=== PATIENT | male | born 1950 | race Caucasian/White ===

== ENCOUNTER 2017-01-11 22:45 | Emergency (ER) | payer OTHER, MEDICARE ==
--- NOTE | 2017-01-11 22:48 | PDOC ---
History of Present Illness - General Chief Complaint: Pain, Acute Stated Complaint: RT ANKLE WOUND PAIN - History of Present Illness Initial Comments: 01/11/17 23:31 This 66-year-old man with a history of CAD/hypertension/hyperlipidemia, presents with history of having right lower leg sebaceous cyst removed in his doctor's office yesterday. Procedure went well and patient had minimal pain ( patient was able to take long walk last evening without difficulty). Tonight, patient had increased pain in the area of the incision and noted swelling in the area. No fever/chills. No previous history of cellulitis/infected cysts or abscesses. No history of resistant organism colonization or infection. 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; subsequently, he has been very cautious with antibiotics that are ototoxic Ampicillin(rash) Quinolones(insomnia) Past History - Past Medical History Allergies/Adverse Reactions: Allergies Allergy/AdvReac Type Severity Reaction Status Date / Time ampicillin [Ampicillin] Allergy Severe Rash Verified 06/22/12 15:03 neomycin [Neomycin] Allergy Severe DAMAGED Verified 06/22/12 15:03 HEARING Quinolones Allergy Severe INSOMNIA Verified 06/22/12 15:03 diazepam [From Valium] AdvReac Intermediate AGITATION Verified 06/07/16 13:23 Home Medications: Ambulatory Orders Ascorbate Calcium [Vitamin C] 500 mg PO DAILY 06/22/12 Aspirin Coated [Ecotrin] 162 mg PO DAILY 06/22/12 Calcium Polycarbophil [Fibercon] 1,000 mg PO BID 06/22/12 Docusate Sodium [Colace] 250 mg PO BID 06/22/12 Enalapril Maleate [Vasotec] 20 mg PO BID 06/22/12 Fish Oil/Borage/Flax/Om3,6,9#1 [[place] 3-6-9 Complex Softgel] 800 mg PO BID 06/22 Hydrochlorothiazide [Hctz] 25 mg PO BID 06/22/12 Omeprazole [Prilosec (RX)] 40 mg PO BID 06/22/12 Vitamin B Complex [Bal B-50] 1 each PO DAILY 06/22/12 Acetaminophen [Tylenol -] 1,000 mg PO Q6H PRN 06/07/16 Cholecalciferol (Vitamin D3) [Vitamin D3] 500 iu PO DAILY 06/07/16 Glucosa Lopez 2Kcl/Chondroitin Lopze [Glucosamine & Chondroitin Cap] 2 cap PO DAILY Nifedipine [Nifedipine ER] 90 mg PO DAILY 06/07/16 Sennosides/Docusate Sodium [Sennosides-Docusate Sodium Tab] 2 tab PO BID PRN Ibuprofen [Motrin -] 200 mg PO BID 06/12/16 Naproxen Sodium [Aleve] 220 mg PO BID 06/12/16 Nebivolol HCl [Bystolic] 10 mg PO HS 06/12/16 Nebivolol HCl [Bystolic] 20 mg PO DAILY 06/12/16 Cephalexin Monohydrate [Keflex -] 500 mg PO Q6H #28 capsule 01/12/17 Sulfamethoxazole/Trimethoprim [Bactrim Ds Tablet] 2 each PO BID #28 tablet 01/12 Anemia: Yes (HAD SHORT TERM TREATMENT WITH IRON MANY YEARS AGO) Asthma: No Cancer: Yes (PROSTATE CANCER-HAD SURGERY 2010) Cardiac Disorders: Yes (CAD) CVA: Yes (THINKS HE HAD TIA ABOUT WHILE OFF HTN MEDS, NO REAL RESIDUAL EFFECTS) COPD: No CHF: No Dementia: No Diabetes: No GI Disorders: Yes ( GERD,CONSTIPATION) Disorders: Yes (PROSTATE CA) HTN: Yes () Hypercholesterolemia: Yes (ON NIACIN) Liver Disease: No Seizures: No Thyroid Disease: No - Surgical History Abdominal Surgery: No Appendectomy: No Cardiac Surgery: Yes (ANGIOGRAM-2009- SOME BLOCKAGE NO RX) Cholecystectomy: No Lung Surgery: No Neurologic Surgery: No Orthopedic Surgery: Yes (LEFT KNEE ARTHROSCOPY ) - Psycho/Social/Smoking Cessation Hx Anxiety: No Suicidal Ideation: No Smoking History: Never smoked Have you smoked in the past 12 months: No Hx Alcohol Use: Yes (2-3 DAILY) Drug/Substance Use Hx: No Substance Use Type: Alcohol Hx Substance Use Treatment: No Review of Systems - Review of Systems Able to Perform ROS?: Yes Comments:: 12 point review of systems is negative except for what is noted in the history of present illness *Physical Exam - Physical Exam Comments: GENERAL:adult male, alert and oriented 3 in no acute distress HEAD: Normal with no signs of trauma. EYES: PERRLA, EOMI, sclera anicteric, conjunctiva clear. ENT: Ears normal, nares patent, oropharynx clear without exudates. Dry mucous membranes. NECK: Normal range of motion, supple without lymphadenopathy, JVD, or masses. LUNGS: Breath sounds equal, clear to auscultation bilaterally. No wheezes, and no crackles. HEART:Regular rate and rhythm, normal S1 and S2 without murmur, rub or gallop. ABDOMEN:.normal bowel sounds No guarding,tenderness or rebound.No masses No distention. EXTREMITIES: right lower leg1 cm linear horizontal sutured incision,intact, 3 cm proximal to medial malleolus no drainage/fluctuance from incision Moderate edema/moderate tenderness in area 4cm proximal/distal to incision No clear lymphangitic streaking Distal extremity warm and dry with good excellent cap refill NEUROLOGICAL: Cranial nerves II through XII grossly intact. Normal speech. No focal neurological deficits. MUSCULOSKELETAL: Back non-tender to palpation, no CVA tenderness SKIN: Warm, Dry, normal turgor, no rashes or lesions noted. ED Treatment Course - LABORATORY CBC & Chemistry Diagram: 01/11/17 23:40 01/11/17 23:40 Medical Decision Making - Medical Decision Making 01/10/17 23:52 Because patient has concerns regarding ototoxicity and vancomycin has some risk for ototoxicity, coverage of MRSA with parenteral agent somewhat problematic. Case discussed with Dr. Moss of Infectious disease staff: Since patient's ALLERGIC reaction to ampicillin was rash with no anaphylaxis, cephalosporins should be well tolerated Cepharoline 600 mg IV will be administered now with good coverage of MRSA as well as strep 01/12/17 02:31 Patient reports significant relief in pain in his leg after 30 mg Toradol IV as well as the IV Cepharoline. Lab results shows elevation of white count at 13,000 but no other significant abnormalities. Lactic acid is less than 1 Patient will be discharged with prescription for Bactrim DS twice a day for the next week along with Keflex 500 mg 4 times a day. Patient will follow-up with Dr. Ocampo within the next 48 hours. He should elevate his left leg as much as possible, avoiding strenuous activity. He should return to the ER if he has worsening pain/swelling/redness or develops fever *DC/Admit/Observation/Transfer Diagnosis at time of Disposition: Cellulitis of right lower leg - Discharge Dispostion Disposition: HOME Condition at time of disposition: Stable - Prescriptions Prescriptions: Sulfamethoxazole/Trimethoprim [Bactrim Ds Tablet] 2 each PO BID #28 tablet Cephalexin Monohydrate [Keflex -] 500 mg PO Q6H #28 capsule - Referrals Referrals: Rylee Ocampo MD [Primary Care Provider] - 2 Days - Patient Instructions Printed Discharge Instructions: Cellulitis Additional Instructions: BactrimDS 2 tabs twice a day for one week Keflex 500mg every 6 hours for one week keep right leg elevated as much as possible for the next 4-[address] Ocampo within the next2-3 days return to ER if you have worsening redness/swelling/ pain or you have fever
[2017-01-11 22:53] VITALS: BP 165/95; PULSE 69; TEMP 97.9; BMI 37.1
[2017-01-11] MEDS ORDERED: VANCOMYCIN 1,000 MG VIAL (RESTRICTED TO ID ONLY) ONE (23:26)
[2017-01-11] MEDS ORDERED: VANCOMYCIN 1,000 MG in DEXTROSE 5%-WATER - 250 ML IVPB ONE (23:37)
[2017-01-11] MEDS ORDERED: KETOROLAC TROMETHAMINE 30 MG/1 ML VIAL IVPUSH ONE (23:48)
[2017-01-11] MEDS ORDERED: KETOROLAC TROMETHAMINE 30 MG/1 ML VIAL ONE (23:51)
[2017-01-11 23:53] LABS: BASOPHIL 2.8 % (0-2.0); EOSINOPHIL 1.1 % (0-4.5); MCHC 34.1 g/dl (32.0-35.9); MEAN PLT VOLUME 8.9 fl (7.5-11.1); NEUTROPHILS 72.1 % (42.8-82.8); PLATELET COUNT 223 K/MM3 (134-434); RDW 12.4 % (11.9-15.9)
[2017-01-12 00:03] LABS: ALK PHOS 54 U/L (32-92); ANION GAP 9 (8-16); CALCIUM 9.8 mg/dl (8.4-10.2); CO2 24 mmol/L (22-28); CREATININE 0.9 mg/dl (0.6-1.3); GLUCOSE,RANDOM 121 mg/dl (74-106); SGOT/AST 24 U/L (10-42); SGPT/ALT 19 U/L (10-40); TOT PROT 6.5 g/dl (6.4-8.3)
[2017-01-12] MEDS: CEFTAROLINE FOSAMIL ACETATE 600 MG in DEXTROSE 5%-WATER - 100 ML IVPB ONE (00:16)
[2017-01-12] MEDS ORDERED: SULFAMETHOXAZOLE/TRIMETHOPRIM 800MG/160MG D.S. TABLET ONE (02:31)
[2017-01-12] MEDS ORDERED: CEPHALEXIN MONOHYDRATE 500 MG CAPSULE (UD) ONE (02:32)
== END 2017-01-12 02:38 | disposition home or self-care (01) ==
LOC: FER 22:45
PROC: 3E03329 Introduction of Other Anti-infective into Peripheral Vein, Percutaneous Approach (ICD-10-PCS; principal; 2017-01-11)
PROC: 3E0333Z Introduction of Anti-inflammatory into Peripheral Vein, Percutaneous Approach (ICD-10-PCS; 2017-01-11)
DX: L03.115 Cellulitis of right lower limb (principal); I25.10 Atherosclerotic heart disease of native coronary artery without angina pectoris; I10 Essential (primary) hypertension; E78.5 Hyperlipidemia, unspecified
CPT/HCPCS: 36415; 80053; 83605; 85025; 87040; 87070; 87186; 87205; 99283-25

== ENCOUNTER 2018-11-25 23:54 | Emergency (ER) | payer OTHER, MEDICARE ==
--- NOTE | 2018-11-26 | PDOC ---
History of Present Illness - General Chief Complaint: Ingestion Stated Complaint: PT THINKS HE TOOK TOO MUCH SALT Time Seen by Provider: 11/25/18 23:59 History Source: Patient Exam Limitations: No Limitations - History of Present Illness Initial Comments: 11/26/18 00:10 68-year-old man with a history of CAD/hypertension/hyperlipidemia presenting with concerns he accidentally ingested too much salt today. About 1 hour to presentation, he was using the salt shaker and put too much salt on his sandwich. Unable to quantify, but too much. he is feeling anxious and endorsing mild headache. No cp, sob, AP, n/v/d, no weakness or leg swelling. No cough. No aspiration. He took his antihypertensives [employer] as scheduled. Denies other coingestants. ROS Constitutional: no fevers or chills. HEENT: no headache or dizziness. No congestion. No visual/hearing disturbances. CVS: no cp or syncope. Resp: no sob. No cough. Gastrointestinal: no abdominal pain, nausea or vomiting. Genitourinary: no urinary sx, hematuria. MUSCULOSKELETAL: No joint pain and swelling. No neck or back pain. SKIN: no redness or skin changes, no discharge, no rash. No wounds. Hematologic: no easy bruising/bleeding. NEUROLOGIC: No headache, dizziness, LOC or altered mental status. No weakness, numbness or tingling. Allergic/Immunologic: no allergies All other systems reviewed and negative, or as documented in HPI. PE General: Well appearing, awake and alert, anxious. HEENT: NCAT, PERRL, EOMI, clear conjunctiva, anicteric, moist mucus membranes, clear oropharynx, no oral lesions.. Neck: neck supple, FROM Resp: CTAB, normal and even respirations, no respiratory distress CVS: RRR, no murmurs, 2+ peripheral pulses throughout, no peripheral edema Abdomen: soft, NTND, obese Back: nontender, normal inspection and ROM MSK: no edema, MONK x4, ROM intact. No clubbing or cyanosis. normal bulk and tone. Neuro: alert, oriented appropriately. no focal neuro deficits, ambulatory w/o difficulty. Skin: warm and well perfused, cap refill <2 sec, normal color 11/26/18 00:10 11/26/18 00:12 Past History - Past Medical History Allergies/Adverse Reactions: Allergies Allergy/AdvReac Type Severity Reaction Status Date / Time ampicillin [Ampicillin] Allergy Severe Rash Verified 06/22/12 15:03 neomycin [Neomycin] Allergy Severe DAMAGED Verified 06/22/12 15:03 HEARING Quinolones Allergy Severe INSOMNIA Verified 06/22/12 15:03 diazepam [From Valium] AdvReac Intermediate AGITATION Verified 06/07/16 13:23 Home Medications: Ambulatory Orders Ascorbate Calcium [Vitamin C] 500 mg PO DAILY 06/22/12 Aspirin Coated [Ecotrin] 162 mg PO DAILY 06/22/12 Calcium Polycarbophil [Fibercon] 1,000 mg PO BID 06/22/12 Docusate Sodium [Colace] 250 mg PO BID 06/22/12 Enalapril Maleate [Vasotec] 20 mg PO BID 06/22/12 Fish Oil/Borage/Flax/Om3,6,9 1 [[place] 3-6-9 Complex Softgel] 800 mg PO BID 06/22 Hydrochlorothiazide [Hctz] 25 mg PO BID 06/22/12 Omeprazole [Prilosec (RX)] 40 mg PO BID 06/22/12 Vitamin B Complex [Bal B-50] 1 each PO DAILY 06/22/12 Acetaminophen [Tylenol -] 1,000 mg PO Q6H PRN 06/07/16 Cholecalciferol (Vitamin D3) [Vitamin D3] 500 iu PO DAILY 06/07/16 Glucosa Lopez 2Kcl/Chondroitin Lopez [Glucosamine & Chondroitin Cap] 2 cap PO DAILY Nifedipine [Nifedipine ER] 90 mg PO DAILY 06/07/16 Sennosides/Docusate Sodium [Sennosides-Docusate Sodium Tab] 2 tab PO BID PRN Ibuprofen [Motrin -] 200 mg PO BID 06/12/16 Naproxen Sodium [Aleve] 220 mg PO BID 06/12/16 Nebivolol HCl [Bystolic] 10 mg PO HS 06/12/16 Nebivolol HCl [Bystolic] 20 mg PO DAILY 06/12/16 Cephalexin Monohydrate [Keflex -] 500 mg PO Q6H #28 capsule 01/12/17 Sulfamethoxazole/Trimethoprim [Bactrim Ds Tablet] 2 each PO BID #28 tablet 01/12 Anemia: Yes (HAD SHORT TERM TREATMENT WITH IRON MANY YEARS AGO) Asthma: No Cancer: Yes (PROSTATE CANCER-HAD SURGERY 2010) Cardiac Disorders: Yes (CAD) CVA: Yes (THINKS HE HAD TIA ABOUT WHILE OFF HTN MEDS, NO REAL RESIDUAL EFFECTS) COPD: No CHF: No Dementia: No Diabetes: No GI Disorders: Yes ( GERD,CONSTIPATION) Disorders: Yes (PROSTATE CA) HTN: Yes () Hypercholesterolemia: Yes (ON NIACIN) Liver Disease: No Seizures: No Thyroid Disease: No - Surgical History Abdominal Surgery: No Appendectomy: No Cardiac Surgery: Yes (ANGIOGRAM-2009- SOME BLOCKAGE NO RX) Cholecystectomy: No Lung Surgery: No Neurologic Surgery: No Orthopedic Surgery: Yes (LEFT KNEE ARTHROSCOPY ) - Suicide/Smoking/Psychosocial Hx Smoking History: Never smoked Have you smoked in the past 12 months: No Hx Alcohol Use: Yes (2-3 DAILY) Drug/Substance Use Hx: No Substance Use Type: Alcohol Hx Substance Use Treatment: No Medical Decision Making - Medical Decision Making 11/26/18 00:11 hpi as documented VS with mild hypertension, but he is anxious and has h/o HTN. prior labs reviewed, normal Cr function, so he will urinate and compensate for the salt intake. no other ingestants. accidental increase in salt has mild LLOYD w/o neuro deficits. tylenol for analgesia. ambulatory in the department, very anxious and hyperactive no SI. Pt informed of my clinical impression, treatment recommendations and disposition plan. All questions answered to patient's satisfaction and expressed understanding and comfort with this. Reasons for returning to the ED sooner discussed with the patient otherwise, follow up with primary care physician. At the time of discharge, the patient is alert, clinically improved, tolerating po and verbalizes understanding of instructions. Patient does not suffer from an acute life-threatening medical condition at this time she is safe for outpatient follow-up. *DC/Admit/Observation/Transfer Diagnosis at time of Disposition: Sodium (Na) excess - Discharge Dispostion Disposition: HOME Condition at time of disposition: Stable - Referrals Referrals: Rylee Ocampo MD [Primary Care Provider] - - Patient Instructions Printed Discharge Instructions: Getting to the Heart of a Healthful Diet: Sodium, Getting to the Heart of a Healthful Diet, The Best Diet for You Additional Instructions: you were evaluated in the department for salt intake your kidneys will flush out the excess and compensate. drink plenty of liquids to flush out. avoid heavy salty intake in the future, be cautious with how much salt you put on your food with the shaker follow up with your primary doctor. dietary instructions provided to you. - Post Discharge Activity
[2018-11-26] MEDS ORDERED: ACETAMINOPHEN 325 MG TABLET (FP) PO ONE (00:06)
[2018-11-26 00:08] VITALS: BP 168/88; PULSE 69; TEMP 97.5; BMI 38.7
[2018-11-26] MEDS ORDERED: ACETAMINOPHEN 500 MG TABLET (FP) ONE (00:10)
== END 2018-11-26 00:17 | disposition home or self-care (01) ==
LOC: FER 23:54
DX: E87.1 Hypo-osmolality and hyponatremia (principal); E87.0 Hyperosmolality and hypernatremia; I10 Essential (primary) hypertension; Z85.46 Personal history of malignant neoplasm of prostate; Z86.73 Personal history of transient ischemic attack (TIA), and cerebral infarction without residual deficits; E78.00 Pure hypercholesterolemia, unspecified
CPT/HCPCS: 99281-25

== ENCOUNTER 2022-05-25 03:44 | Emergency (ER) | payer OTHER ==
[2022-05-25 04:01] VITALS: BP 139/69; PULSE 64; TEMP 97.7; BMI 33.0
== END 2022-05-25 06:45 | disposition home or self-care (01) ==
LOC: FER 03:44
DX: I80.8 Phlebitis and thrombophlebitis of other sites (principal)
CPT/HCPCS: 93971; 99284-25

== ENCOUNTER 2023-09-05 13:50 | Observation (INO) | payer OTHER ==
[2023-09-05 14:55] LABS: HEMATOCRIT 44.6 % (35.4-49); HEMOGLOBIN 15.2 G/dL (11.7-16.9); MCH 30.1 pg (25.7-33.7); MCHC 34.1 g/dl (32.0-35.9); MEAN CELL VOLUME 88.4 fl (80-96); MEAN PLT VOLUME 8.8 fl (7.5-11.1); PLATELET COUNT 159.8 10^3/uL (134-434); RBC 5.04 10^6/uL (4.00-5.60); RDW 14.2 % (11.9-15.9); WHITE BLOOD COUNT 6.8 10^3/uL (4.0-10.8)
[2023-09-05 15:04] LABS: INR 1.36 (0.83-1.09); PROTHROMBIN TIME (PATIENT) 15.7 SEC (9.7-13.0)
[2023-09-05 15:07] LABS: ACTIVATED PTT 35.4 SECONDS (25.2-36.5)
[2023-09-05 15:43] LABS: PLATELET ESTIMATE ADEQUATE
[2023-09-05 15:47] LABS: BILIRUBIN,TOTAL 0.9 mg/dl (0.2-1); BLOOD UREA NITROGEN 27.5 mg/dl (7-18); CALCIUM 9.5 mg/dl (8.5-10.1); CREATININE 1.6 mg/dl (0.6-1.3); POTASSIUM 3.9 mmol/L (3.5-5.1); SGOT/AST 18.9 U/L (15-37); SGPT/ALT 14.1 U/L (7-52); TOT PROT 6.2 g/dl (6.4-8.2)
[2023-09-05 18:44] VITALS: BMI 31.1
[2023-09-05] MEDS ORDERED: DOCUSATE SODIUM 100 MG CAPSULE (FP) PO PRN (19:36)
[2023-09-05] MEDS ORDERED: ACETAMINOPHEN 325 MG TABLET (FP) PO PRN (19:36)
[2023-09-05] MEDS ORDERED: SODIUM CHLORIDE 1,000 ML IV SCH (19:45)
[2023-09-05] MEDS ORDERED: ATORVASTATIN CA 40 MG TABLET (FP) PO SCH (22:00)
[2023-09-05] MEDS: HYDROCHLOROTHIAZIDE 12.5 MG CAPSULE (FP) PO SCH (22:29)
[2023-09-05] MEDS: APIXABAN 5 MG TABLET PO SCH (22:29)
[2023-09-06] MEDS: ENALAPRIL MALEATE 10 MG TABLET PO SCH ×2 (00:22→09:37)
[2023-09-06] MEDS ORDERED: NIFEdipine E.R. 90 MG TABLET PO SCH ×4 (00:31→23:51)
[2023-09-06 06:15] VITALS: RESP 18; TEMP 97.6
[2023-09-06 08:35] LABS: HEMOGLOBIN 14.9 G/dL (11.7-16.9); MCH 30.1 pg (25.7-33.7); MCHC 33.8 g/dl (32.0-35.9); MEAN PLT VOLUME 8.9 fl (7.5-11.1); PLATELET COUNT 166.8 10^3/uL (134-434); RBC 4.94 10^6/uL (4.00-5.60); RDW 14.6 % (11.9-15.9); WHITE BLOOD COUNT 7.5 10^3/uL (4.0-10.8)
[2023-09-06 08:51] LABS: BLOOD UREA NITROGEN 27.3 mg/dl (7-18); CALCIUM 9.3 mg/dl (8.5-10.1); CREATININE 1.5 mg/dl (0.6-1.3); MAGNESIUM 1.8 mg/dL (1.8-2.4); PHOSPHOROUS 3.24 (2.5-4.9); POTASSIUM 4.1 mmol/L (3.5-5.1)
[2023-09-06] MEDS: APIXABAN 5 MG TABLET PO SCH (09:39)
[2023-09-06] MEDS: HYDROCHLOROTHIAZIDE 12.5 MG CAPSULE (FP) PO SCH (09:39)
[2023-09-06] MEDS ORDERED: SPIRONOLACTONE 25 MG TABLET PO SCH (10:00)
[2023-09-06] MEDS ORDERED: CLOPIDOGREL BISULFATE 75 MG TABLET (FP) PO SCH (10:00)
[2023-09-06] MEDS ORDERED: PATIENT'S OWN MEDICATION (NON-FORMULARY) (Methenamine Hippurate [Hiprex] 1 GM Tablet) PO SCH (10:00)
[2023-09-06] MEDS ORDERED: SENNOSIDES/DOCUSATE COMBO (SENNA PLUS) TABLET (UD) PO SCH (10:00)
[2023-09-06] MEDS ORDERED: PANTOPRAZOLE 20 MG TABLET PO SCH (10:00)
[2023-09-06 10:30] VITALS: BP 151/90; PULSE 60
== END 2023-09-06 12:24 | disposition home or self-care (01) ==
LOC: FER 13:50 → FM/S 16:46
PROVIDERS: ADMIT Internal Medicine
PROC: 3E0337Z Introduction of Electrolytic and Water Balance Substance into Peripheral Vein, Percutaneous Approach (ICD-10-PCS; principal; 2023-09-05)
DX: I25.10 Atherosclerotic heart disease of native coronary artery without angina pectoris (principal); I11.0 Hypertensive heart disease with heart failure; I48.91 Unspecified atrial fibrillation; K21.9 Gastro-esophageal reflux disease without esophagitis; E66.9 Obesity, unspecified; R07.89 Other chest pain; F41.0 Panic disorder [episodic paroxysmal anxiety]; E78.5 Hyperlipidemia, unspecified; I73.9 Peripheral vascular disease, unspecified; D64.9 Anemia, unspecified; Z86.73 Personal history of transient ischemic attack (TIA), and cerebral infarction without residual deficits; F41.9 Anxiety disorder, unspecified; Z85.46 Personal history of malignant neoplasm of prostate; Z88.8 Allergy status to other drugs, medicaments and biological substances
CPT/HCPCS: 0241U-QW; 36415; 70450-TC; 71045-TC-FY; 80048; 80053; 81003; 81015; 83735; 84100; 84484; 85027; 85610; 85730; 87086; 93005; 96360; 99285-25; G0378